=== PATIENT | female | born 1975 | race Caucasian/White ===

== ENCOUNTER 2019-11-15 14:56 | Emergency (ER) | payer OTHER, SELFPAY ==
[2019-11-15 15:06] VITALS: BP 140/81; PULSE 107; RESP 20; TEMP 39; O2SAT 98
--- NOTE | 2019-11-15 15:38 | ED.GENADULT ---
HPI - General Adult General Chief complaint: Upper Respiratory Infection Stated complaint: COUGH/CONGESTION/FEVER Time Seen by Provider: 11/15/19 15:39 Source: patient Mode of arrival: ambulatory Limitations: no limitations History of Present Illness HPI narrative: 44-year-old female patient presents to the psychiatric with complaints of cold symptoms that started yesterday. Patient states she has had headache, nasal congestion, runny nose, cough, sore throat. Denies any nausea, vomiting or diarrhea. Denies any chest pain or shortness of breath. Patient states she has been trying to treat herself with Tylenol, Motrin and NyQuil for her pain. Patient states she was supposed to see her primary doctor at 3:00 today but they called and canceled the appointment because the doctor got sick. 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 Patient denies getting a flu shot this year. Related Data Home Medications Medication Instructions Recorded Confirmed cetirizine [Zyrtec] 10 mg PO DAILY 11/15/19 11/15/19 agxjptehsullv-MX-sxrppmdlpaezu ml PO 11/15/19 [Vicks DayQuil Cold-Flu Relief] Allergies Allergy/AdvReac Type Severity Reaction Status Date / Time aspirin Allergy Unknown Cough Verified 11/15/19 15:15 NSAIDS (Non-Steroidal Allergy Unknown Cough Verified 11/15/19 15:15 Anti-Inflamma Review of Systems Review of Systems: Narrative: CONSTITUTIONAL: Positive fever, chills, body aches and sweats. EYES: Denies visual changes, redness, or discharge. ENT: Positive rhinorrhea, congestion, sore throat, denies otalgia. CARDIOVASCULAR: Denies chest pain, palpitations, or edema. RESPIRATORY: Positive cough denies dyspnea. GASTROINTESTINAL: Denies abdominal pain, nausea, vomiting, or diarrhea. GENITOURINARY: Denies dysuria or hematuria. SKIN: Denies rash or itching. MUSCULOSKELETAL: Denies back pain, joint pain, or myalgia. NEUROLOGIC: Denies headache, numbness, or weakness. PSYCHIATRIC: Denies anxiety or depression. [facility] Family History Family History Father Diabetes mellitus Family history of chronic obstructive pulmonary disease Family history of throat cancer Hypertension Family history of kidney disease Mother Family history of hypercholesterolemia Family history of chronic obstructive pulmonary disease Carcinoma of colon Other Family history of Parkinson's disease Family history of lung cancer Social History Social History Smoking status: Never smoker Alcohol intake: current Comments At the time of my signature I agree with nursing past medical history, surgical, social, and family history. There is no relevant family history pertinent to the presenting complaint. Exam Narrative: Exam Narrative: GENERAL: Well-appearing, well-nourished, and in no acute distress. HEAD: Normocephalic, atraumatic. No tenderness noted to frontal or maxillary sinuses on palpation. EYES: PERRLA and EOMI. ENT: Nares with erythema and edema noted bilaterally, no rhinorrhea or epistaxis. Mucous membranes moist. Bilateral TMs are clear no erythema or foreign bodies in the canal. Posterior pharynx with no erythema, tonsil enlargement, exudates or lesions present. NECK: Supple. No lymphadenopathy CHEST: Clear to auscultation. No respiratory distress. HEART: Regular rate and rhythm. No murmur heard. Normal peripheral pulses. ABDOMEN: Soft, nontender, nondistended, normal active bowel sounds. EXTREMITIES: Normal range of motion. No edema. SKIN: Warm, dry, no rash. NEURO: No focal deficits. Alert and oriented x3. Course Vital Signs Vital signs: Vital Signs Temperature 39.0 C H 11/15/19 15:06 Pulse Rate 107 H 11/15/19 15:06 Respiratory Rate 11/15/19 15:06 Blood Pressure 140/81 11/15/19 15:06 Pulse Oximetry 98 11/15/19 15:06 Temperature 39.0 C H 11/15/19 15:06 Pulse Rate 107 H 11/15/19 15:06 Res
== END 2019-11-15 15:45 | disposition home or self-care (01) ==
PROVIDERS: Emergency Provider Nurse Practitioner Family
DX: J10.1 Influenza due to other identified influenza virus with other respiratory manifestations (principal); I10 Essential (primary) hypertension
CPT/HCPCS: 87804; 99213; G0463

== ENCOUNTER → 2021-01-16 06:54 | Outpatient (CLI) | payer OTHER, SELFPAY ==
[2021-01-17 17:42] LABS: SARS-CoV-2 RNA PCR Negative
== END ==
PROVIDERS: PCP Family Medicine; Visit Provider Nurse Practitioner Family
DX: R68.89 Other general symptoms and signs (principal); Z20.822 Contact with and (suspected) exposure to COVID-19
CPT/HCPCS: C9803; U0003; U0005

== ENCOUNTER → 2021-06-25 16:10 | Outpatient (REF) | payer OTHER, SELFPAY | LOC: ANHLAB 16:10 | PROVIDERS: PCP Nurse Practitioner Family; Visit Provider Nurse Practitioner | DX: L72.11 Pilar cyst (principal) | CPT/HCPCS: 88304 ==

== ENCOUNTER 2023-10-23 10:50 | Emergency (ER) | payer OTHER, SELFPAY ==
[2023-10-23 11:05] VITALS: BP 139/89; PULSE 104; RESP 16; TEMP 37.7; O2SAT 98
--- NOTE | 2023-10-23 11:06 | ED.URI ---
HPI - URI/Sore Throat General Chief Complaint: Upper Respiratory Infection Stated Complaint: SORE THROAT/FEVER/SINUS/CONGESTION/COUGH Time Seen by Provider: 10/23/23 11:06 Source: patient, RN notes reviewed and old records reviewed Mode of arrival: ambulatory Limitations: no limitations History of Present Illness HPI Narrative: 48-year-old female presents to the [facility] with complaints a scratchy sore throat that started on Thursday, 2 days ago. Yesterday started was fevers as high as 102, cough, congestion. Reports headache. Productive cough Related Data Home Medications Medication Instructions Recorded Confirmed peipksgmexkv-Jz-epsf-minerals 1 tablet PO DAILY 02/18/22 10/23/23 cetirizine 10 mg tablet (Zyrtec) 10 mg PO DAILY 10/23/23 10/23/23 pseudoephedrine HCl 120 mg 1 mg PO DAILY 10/23/23 10/23/23 tablet,extended release (Sudafed 12 Hour) Allergies Allergy/AdvReac Type Severity Reaction Status Date / Time aspirin Allergy Unknown Cough Verified 10/23/23 10:57 NSAIDS (Non-Steroidal Allergy Unknown Cough Verified 10/23/23 10:57 Anti-Inflamma lisinopril AdvReac Mild posible Verified 10/23/23 10:57 palpitations Review of Systems Review of Systems: All systems reviewed & are unremarkable except as noted in HPI and below Constitutional: Constitutional: Reports no additional constitutional complaints Eyes: Eyes: Reports no additional eye complaints ENT: Reports as per HPI Cardiovascular: Cardiovascular: Reports no additional cardiovascular complaints, Denies chest pain and Denies dyspnea Respiratory: Respiratory: Reports as per HPI, Reports chest congestion, Reports cough and Denies dyspnea Gastrointestinal: Gastrointestinal: Reports no additional gastrointestinal complaints, Denies abdominal pain, Denies nausea and Denies vomiting Musculoskeletal: Musculoskeletal: Reports no additional musculoskeletal complaints Integumentary/Breasts: Skin/Breast: Reports system reviewed and no additional complaints, except as docu Neurologic: Reports system reviewed and no additional complaints, except as documented Psychiatric: Psychiatric: Reports no additional psychiatric complaints Allergic/Immunologic: Allergic/Immunologic: Reports no additional allergic/immunologic complaints PMFSH Past Medical History Medical History Allergic rhinitis Essential (primary) hypertension Glaucoma Pneumonia Screening mammogram, encounter for Surgical History Surgical History History of appendectomy (08/12/17) History of 02/24/2013 primary c/s--breech 11/10/16 rpt c/s w/tubal ligation History of placement of ear tubes (~1982) History of tonsillectomy (~1979) History of tubal ligation (11/10/16) Family History Family History Father Diabetes mellitus Family history of chronic obstructive pulmonary disease Family history of throat cancer Hypertension Family history of kidney disease Mother Family history of hypercholesterolemia Family history of chronic obstructive pulmonary disease Carcinoma of colon Heart disease Sibling Hypertension brother Diabetes mellitus brother Grandparent Cerebrovascular accident paternal grandmother Other Breast cancer maternal aunt paternal aunt Other Family history of Parkinson's disease Family history of lung cancer Social History Social History Social History: Patient is , she lives in [place] with her and 2 boys. 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 Smoking status: Never smoker Alcohol intake: current Drinks per week: 1 Substance use: never Substance use type: does not use Living arrangements: other Additional living arrangements
== END 2023-10-23 11:20 | disposition home or self-care (01) ==
PROVIDERS: Emergency Provider Nurse Practitioner
DX: U07.1 COVID-19 (principal); I10 Essential (primary) hypertension; H40.9 Unspecified glaucoma
CPT/HCPCS: 87081; 87426; 87804; 87880; 99213; G0463

== ENCOUNTER 2024-01-15 13:08 | Emergency (ER) | payer OTHER, SELFPAY ==
--- NOTE | 2024-01-15 13:17 | ED.GENADULT ---
HPI - General Adult General Chief complaint: Upper Respiratory Infection Stated complaint: Sinus Infection Symptoms Source: patient, RN notes reviewed and old records reviewed Mode of arrival: ambulatory Limitations: no limitations History of Present Illness HPI narrative: 48-year-old female presents to [facility] with complaints of cough, congestion, sore throat, myalgia, headache, fatigue this started Thursday. Patient states he is taking [id number]-fzr-apcjbpp symptoms with no relief. Patient denies chest pain, shortness of breath cough dizziness, weakness. Related Data Home Medications Medication Instructions Recorded Confirmed hjnzesvzlojn-Xe-hqhz-minerals 1 tablet PO DAILY 02/18/22 10/23/23 cetirizine 10 mg tablet (Zyrtec) 10 mg PO DAILY 10/23/23 10/23/23 pseudoephedrine HCl 120 mg 1 mg PO DAILY 10/23/23 10/23/23 tablet,extended release (Sudafed 12 Hour) Allergies Allergy/AdvReac Type Severity Reaction Status Date / Time aspirin Allergy Unknown Cough Verified 10/23/23 10:57 NSAIDS (Non-Steroidal Allergy Unknown Cough Verified 10/23/23 10:57 Anti-Inflamma lisinopril AdvReac Mild posible Verified 10/23/23 10:57 palpitations Review of Systems Constitutional: Constitutional: Reports no additional constitutional complaints, Reports body ache(s), Denies chills, Denies fatigue, Denies fever(s) and Reports headache(s) Eyes: Eyes: Reports no additional eye complaints and Denies blurry vision ENT: Reports system reviewed and no additional complaints, except as documented, Denies vertigo, Denies dizziness, Denies ear discharge, Denies otalgia, Denies facial pain, Reports headache(s), Reports nasal congestion, Reports nasal discharge, Denies sinus pain, Reports sinus pressure and Reports sore throat Cardiovascular: Cardiovascular: Reports no additional cardiovascular complaints, Denies chest pain, Denies chest pain at rest, Denies rapid heart rate and Denies dyspnea Respiratory: Respiratory: Reports no additional respiratory complaints, Denies chest congestion, Reports cough, Denies pain on inspiration, Denies pain with cough and Denies dyspnea Gastrointestinal: Gastrointestinal: Denies abdominal pain, Denies diarrhea, Denies nausea and Denies vomiting Integumentary/Breasts: Skin/Breast: Denies rash Neurologic: Reports system reviewed and no additional complaints, except as documented, Denies vertigo, Denies dizziness and Denies headache(s) Endocrine: Endocrine: Denies fatigue [facility] Past Medical History Medical History Allergic rhinitis Essential (primary) hypertension Glaucoma Pneumonia Screening mammogram, encounter for Surgical History Surgical History History of appendectomy (08/12/17) History of 02/24/2013 primary c/s--breech 11/10/16 rpt c/s w/tubal ligation History of placement of ear tubes (~1982) History of tonsillectomy (~1979) History of tubal ligation (11/10/16) Family History Family History Father Diabetes mellitus Family history of chronic obstructive pulmonary disease Family history of throat cancer Hypertension Family history of kidney disease Mother Family history of hypercholesterolemia Family history of chronic obstructive pulmonary disease Carcinoma of colon Heart disease Sibling Hypertension brother Diabetes mellitus brother Grandparent Cerebrovascular accident paternal grandmother Other Breast cancer maternal aunt paternal aunt Other Family history of Parkinson's disease Family history of lung cancer Social History Social History Social History: Patient is , she lives in [place] with her and 2 boys. 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
[2024-01-15 13:21] VITALS: BP 160/85; PULSE 92; RESP 16; TEMP 36.8; O2SAT 98
== END 2024-01-15 13:43 | disposition home or self-care (01) ==
PROVIDERS: Emergency Provider Registered Nurse
DX: J10.1 Influenza due to other identified influenza virus with other respiratory manifestations (principal); I10 Essential (primary) hypertension; H40.9 Unspecified glaucoma
CPT/HCPCS: 87081; 87804; 87880; 99213; G0463

== ENCOUNTER 2024-01-18 15:32 | Emergency (ER) | payer OTHER, SELFPAY ==
--- NOTE | 2024-01-18 15:39 | ED.URI ---
HPI - URI/Sore Throat General Chief Complaint: Upper Respiratory Infection Stated Complaint: Sinus Infection Symptoms Time Seen by Provider: 01/18/24 15:42 Source: patient, RN notes reviewed and old records reviewed Mode of arrival: ambulatory Limitations: no limitations History of Present Illness HPI Narrative: 48-year-old female [facility] with continued symptoms after testing positive for influenza B on Thursday, 3 days ago. Symptoms started on Thursday 5 days ago. Patient states that she thought she was getting better but still having sinus congestion. Related Data Home Medications Medication Instructions Recorded Confirmed zqnjbjztyppn-Ir-heai-minerals 1 tablet PO DAILY 02/18/22 10/23/23 cetirizine 10 mg tablet (Zyrtec) 10 mg PO DAILY 10/23/23 10/23/23 pseudoephedrine HCl 120 mg 1 mg PO DAILY 10/23/23 10/23/23 tablet,extended release (Sudafed 12 Hour) Allergies Allergy/AdvReac Type Severity Reaction Status Date / Time aspirin Allergy Unknown Cough Verified 01/18/24 15:40 NSAIDS (Non-Steroidal Allergy Unknown Cough Verified 01/18/24 15:40 Anti-Inflamma lisinopril AdvReac Mild posible Verified 01/18/24 15:40 palpitations Review of Systems Review of Systems: All systems reviewed & are unremarkable except as noted in HPI and below Constitutional: Constitutional: Reports no additional constitutional complaints Eyes: Eyes: Reports no additional eye complaints ENT: Reports as per HPI Cardiovascular: Cardiovascular: Reports no additional cardiovascular complaints, Denies chest pain and Denies dyspnea Respiratory: Respiratory: Reports no additional respiratory complaints, Denies chest congestion, Denies cough and Denies dyspnea Gastrointestinal: Gastrointestinal: Reports no additional gastrointestinal complaints, Denies abdominal pain, Denies nausea and Denies vomiting Musculoskeletal: Musculoskeletal: Reports no additional musculoskeletal complaints Integumentary/Breasts: Skin/Breast: Reports system reviewed and no additional complaints, except as docu Neurologic: Reports system reviewed and no additional complaints, except as documented Psychiatric: Psychiatric: Reports no additional psychiatric complaints Allergic/Immunologic: Allergic/Immunologic: Reports no additional allergic/immunologic complaints PMFSH Past Medical History Medical History Allergic rhinitis Essential (primary) hypertension Glaucoma Pneumonia Screening mammogram, encounter for Surgical History Surgical History History of appendectomy (08/12/17) History of 02/24/2013 primary c/s--breech 11/10/16 rpt c/s w/tubal ligation History of placement of ear tubes (~1982) History of tonsillectomy (~1979) History of tubal ligation (11/10/16) Family History Family History Father Diabetes mellitus Family history of chronic obstructive pulmonary disease Family history of throat cancer Hypertension Family history of kidney disease Mother Family history of hypercholesterolemia Family history of chronic obstructive pulmonary disease Carcinoma of colon Heart disease Sibling Hypertension brother Diabetes mellitus brother Grandparent Cerebrovascular accident paternal grandmother Other Breast cancer maternal aunt paternal aunt Other Family history of Parkinson's disease Family history of lung cancer Social History Social History Social History: Patient is , she lives in [place] with her and 2 boys. 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 Smoking status: Never smoker Alcohol intake: current Drinks per week: 1 Substance use: never Substance use type: does not use [facility]
[2024-01-18 15:41] VITALS: BP 154/99; PULSE 92; RESP 20; TEMP 38; O2SAT 100
== END 2024-01-18 16:04 | disposition home or self-care (01) ==
PROVIDERS: Emergency Provider Nurse Practitioner
DX: J32.9 Chronic sinusitis, unspecified (principal); J10.1 Influenza due to other identified influenza virus with other respiratory manifestations; I10 Essential (primary) hypertension; H40.9 Unspecified glaucoma
CPT/HCPCS: 99211; G0463

== ENCOUNTER 2024-03-14 15:32 | Emergency (ER) | payer OTHER, SELFPAY ==
--- NOTE | ~2024-03-14 | XR_ITS ---
EXAM: XR elbow RT min 3V DATE: 03/14/2024 16:12 HISTORY: fell over box onto elbow . COMPARISON: None available. FINDINGS: Normal mineralization. No fracture or dislocation. No lytic or blastic lesion. 6 x 6 cm os seous projection along the medial cortex of the distal humerus. Joint spaces are maintained. Triceps enthesopathy. No erosion or periosteal change. Soft tissues within normal limits. IMPRESSION: No acute osseous finding in the right elbow. Likely osteochondroma projecting off the medial aspect of the distal humerus 6.1 cm above the joint l ine, which could be a source of chronic pain. Correlate for pain/tenderness. Reviewed, dictated and finalized at location K. IMPRESSION: No acute osseous finding in the right elbow. Likely osteochondroma projecting off the medial aspect of the distal humerus 6. 1 cm above the joint line, which could be a source of chronic pain. Correlate f or pain/tenderness.
[2024-03-14 15:42] VITALS: BP 135/85; PULSE 83; RESP 16; TEMP 36.7; O2SAT 99
--- NOTE | 2024-03-14 15:58 | ED.EXTPRO ---
HPI - Extremity Problem General Chief complaint: Extremity Injury, Upper Stated complaint: FALL/R ELBOW INJURY Time Seen by Provider: 03/14/24 15:49 Source: patient and RN notes reviewed Mode of arrival: ambulatory Limitations: no limitations History of Present Illness HPI Narrative: Patient presents today complaining of right elbow pain. Almost a month ago, she fell over a box on her elbow and has been having pain ever since. There it was some numbness and tingling initially, but this has since resolved. She rates her pain at rest 1-2/10, but this increases to 7/10 with movement. She has been applying ice and taking Tylenol with some mild relief. Pain increases with movements such as changing the channel of her car radial or doing large pump motions. Related Data Home Medications Medication Instructions Recorded Confirmed rpuyjyxabreh-Ab-xkoz-minerals 1 tablet PO DAILY 02/18/22 03/14/24 cetirizine 10 mg tablet (Zyrtec) 10 mg PO DAILY 10/23/23 03/14/24 fluticasone furoate 27.5 1 spray intranasal DAILY 03/08/24 03/14/24 mcg/actuation nasal spray,suspension (Flonase Sensimist) Allergies Allergy/AdvReac Type Severity Reaction Status Date / Time aspirin Allergy Unknown Cough Verified 03/14/24 15:45 NSAIDS (Non-Steroidal Allergy Unknown Cough Verified 03/14/24 15:45 Anti-Inflamma lisinopril AdvReac Mild posible Verified 03/14/24 15:45 palpitations Review of Systems Review of Systems: CONSTITUTIONAL: Denies body aches, fever, chills, or sweats. EYES: Denies visual changes, redness, or discharge. ENT: Denies rhinorrhea, congestion, sore throat, or otalgia. CARDIOVASCULAR: Denies chest pain, palpitations, or edema. RESPIRATORY: Denies cough or dyspnea. GASTROINTESTINAL: Denies abdominal pain, nausea, vomiting, or diarrhea. GENITOURINARY: Denies dysuria or hematuria. SKIN: Denies rash, itching, or wounds. MUSCULOSKELETAL: Denies back pain, or myalgia. + right elbow pain NEUROLOGIC: Denies headache, numbness, tingling, or weakness. PSYCH: Denies depression or anxiety. [facility] Past Medical History Medical History Allergic rhinitis Cyst removed from left arm 1995 / cyst removed from scalp 2021 Essential (primary) hypertension Glaucoma Pneumonia Screening mammogram, encounter for Surgical History Surgical History History of appendectomy (08/12/17) History of 02/24/2013 primary c/s--breech 11/10/16 rpt c/s w/tubal ligation History of placement of ear tubes (~1982) History of tonsillectomy (~1979) History of tubal ligation (11/10/16) Family History Family History Father Diabetes mellitus Family history of chronic obstructive pulmonary disease Family history of throat cancer Hypertension Family history of kidney disease Mother Family history of hypercholesterolemia Family history of chronic obstructive pulmonary disease Carcinoma of colon Heart disease Sibling Hypertension brother Diabetes mellitus brother Grandparent Cerebrovascular accident paternal grandmother Other Breast cancer maternal aunt paternal aunt Other Family history of Parkinson's disease Family history of lung cancer Social History Social History Social History: Patient is , she lives in [place] with her and 2 boys. 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 Smoking status: Never smoker Second hand tobacco smoke exposure: No Alcohol intake: current Drinks per week: 1 Substance use: never Substance use type: does not use Do You Feel Safe in your Home?: Yes Lack of Transportation: No Lack of Food: Never True Current Housing: I Have Housing Concerned About
== END 2024-03-14 16:43 | disposition home or self-care (01) ==
PROVIDERS: Emergency Provider Nurse Practitioner
DX: S59.901A Unspecified injury of right elbow, initial encounter (principal); W01.0XXA Fall on same level from slipping, tripping and stumbling without subsequent striking against object, initial encounter; I10 Essential (primary) hypertension; H40.9 Unspecified glaucoma
CPT/HCPCS: 73080; 99213; G0463

== ENCOUNTER 2024-10-03 00:07 | Day surgery (SDC) | payer OTHER, SELFPAY ==
[2024-09-20 08:49] VITALS: BMI 38.0
[2024-10-03 06:51] VITALS: BP 148/94; PULSE 84; RESP 18; TEMP 36.2; O2SAT 95
[2024-10-03] MEDS: LACTATED RINGERS 1,000 ML 150 ML IV CONT (06:59)
--- NOTE | 2024-10-03 07:23 | WPDANESEPPF ---
Anes - Initial Pre Proc Eval Procedure: Operation Date: 10/03/24 08:00 Proposed Procedures p Screening Colonoscopy - Darryl Ramirez DO Date/Time: 10/03/24 07:23 Surgeon: Darryl Ramirez DO Pre Op Diagnosis: Screening for malignant neoplasm of colon Patient Data Age: 49 Gender: F Height: 1.73 m Weight: 117.1 kg Last Vital Signs Temp 36.2 C L 10/03/24 06:51 Pulse 84 10/03/24 06:51 Resp 18 10/03/24 06:51 BP 148/94 H 10/03/24 06:51 Pulse Ox 95 10/03/24 06:51 O2 Del Method Room Air 10/03/24 06:51 Allergies Allergy/AdvReac Type Severity Reaction Status Date / Time aspirin Allergy Unknown Cough Verified 10/03/24 06:47 NSAIDS (Non-Steroidal Allergy Unknown Cough Verified 10/03/24 06:47 Anti-Inflamma lisinopril AdvReac Mild posible Verified 10/03/24 06:47 palpitations Home Medications ?Medication ?Instructions ?Recorded ?Confirmed ?Type dabclhaelybo-Zz-lpbd-minerals 1 tablet PO DAILY 02/18/22 10/03/24 History cetirizine 10 mg tablet (Zyrtec) 10 mg PO DAILY 10/23/23 10/03/24 History fluticasone furoate 27.5 1 spray intranasal DAILY 03/08/24 10/03/24 History mcg/actuation nasal spray,suspension (Flonase Sensimist) Patient hx anesthesia problems: none Family hx anesthesia problems: none Results Review: All pre-operative results and documents have been reviewed as part of the pre-operative evaluation. [facility] Past Medical History Medical History Allergic rhinitis Cyst removed from left arm 1995 / cyst removed from scalp 2021 Essential (primary) hypertension Glaucoma Pneumonia Screening mammogram, encounter for Surgical History Surgical History History of appendectomy (08/12/17) History of 02/24/2013 primary c/s--breech 11/10/16 rpt c/s w/tubal ligation History of placement of ear tubes (~1982) History of tonsillectomy (~1979) History of tubal ligation (11/10/16) Family History Family History Father Diabetes mellitus Family history of chronic obstructive pulmonary disease Family history of throat cancer Hypertension Family history of kidney disease Mother Family history of hypercholesterolemia Family history of chronic obstructive pulmonary disease Carcinoma of colon Heart disease Sibling Hypertension brother Diabetes mellitus brother Grandparent Cerebrovascular accident paternal grandmother Other Breast cancer maternal aunt paternal aunt Other Family history of Parkinson's disease Family history of lung cancer Social History Social History Social History: Patient is , she lives in [place] with her and 2 boys. 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 Smoking status: Never smoker Second hand tobacco smoke exposure: No Alcohol intake: current Drinks per week: 1 Substance use: never Substance use type: does not use Do You Feel Safe in your Home?: Yes Lack of Transportation: No Lack of Food: Never True Current Housing: I Have Housing Concerned About Future Housing: No Difficulty Paying Gas/Electric Bills: No Difficulty Paying for Meds: No Currently Unemployed: No Education: Master's Degree or Higher Difficulty w/ Childcare or Family Care: No Living arrangements: with family Additional living arrangements comments: Occupation/Education: occupation 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 Gender identity (if verbalized by the patient): Female Sexual Orientation (if Verbalized by the Patient): Straight or Heterosexual Spiritual care concerns: No Anes - Eval Final PreProcedure Day of Procedure 10/03/24 07:23 Patient weight: obese Heart: regular rate and rhythm Lungs: clear to auscultation Airway: Mallampati scale class II Neurological: alert and oriented Last oral intake: >/= 8 hours ASA classification: II Emergent: no Anesthetic plan: proceed Anesthesia type and monitoring: general GIVS and standard monitoring Results Review: All pre-operative results and documents have been reviewed as part of the pre-operative evaluation. Informed Consent: The patient's anesthetic plan and its attendant risks and benefits were discussed with the patient/family/POA. Questions were solicited and answers provided to the satisfaction of the patient/family/POA.
--- NOTE | 2024-10-03 07:49 | PM.IMHP ---
H&P: HPI History of Present Illness Date/Time: 10/03/24 07:49 Chief Complaint: Family history of colon cancer Narrative: this is a 49-year-old woman who presents for 1st colonoscopy. She has a family history of colon cancer in her mother. She denies any hematochezia or melena. Review of Systems Review of Systems: All systems reviewed & are unremarkable except as noted in HPI and below Constitutional: Constitutional: Denies chills, Denies fever(s), Denies headache(s) and Denies weight loss Eyes: Eyes: Denies change in vision ENT: Denies dizziness, Denies headache(s), Denies neck mass and Denies throat swelling Cardiovascular: Cardiovascular: Denies chest pain, Denies lightheadedness and Denies dyspnea Respiratory: Respiratory: Denies cough, Denies dyspnea and Denies wheezing Gastrointestinal: Gastrointestinal: Denies abdominal pain, Denies change in bowel habits, Denies nausea and Denies vomiting Genitourinary: Genitourinary: Denies hematuria and Denies dysuria Musculoskeletal: Musculoskeletal: Reports as per HPI Integumentary/Breasts: Skin/Breast: Reports as per HPI Neurologic: Denies dizziness and Denies headache(s) Allergic/Immunologic: Allergic/Immunologic: Denies throat swelling and Denies wheezing PMF Past Medical History Medical History Allergic rhinitis Cyst removed from left arm 1995 / cyst removed from scalp 2021 Essential (primary) hypertension Glaucoma Pneumonia Screening mammogram, encounter for Surgical History Surgical History History of appendectomy (08/12/17) History of 02/24/2013 primary c/s--breech 11/10/16 rpt c/s w/tubal ligation History of placement of ear tubes (~1982) History of tonsillectomy (~1979) History of tubal ligation (11/10/16) Family History Family History Father Diabetes mellitus Family history of chronic obstructive pulmonary disease Family history of throat cancer Hypertension Family history of kidney disease Mother Family history of hypercholesterolemia Family history of chronic obstructive pulmonary disease Carcinoma of colon Heart disease Sibling Hypertension brother Diabetes mellitus brother Grandparent Cerebrovascular accident paternal grandmother Other Breast cancer maternal aunt paternal aunt Other Family history of Parkinson's disease Family history of lung cancer Social History Social History Social History: Patient is , she lives in [place] with her and 2 boys. 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 Smoking status: Never smoker Second hand tobacco smoke exposure: No Alcohol intake: current Drinks per week: 1 Substance use: never Substance use type: does not use Do You Feel Safe in your Home?: Yes Lack of Transportation: No Lack of Food: Never True Current Housing: I Have Housing Concerned About Future Housing: No Difficulty Paying Gas/Electric Bills: No Difficulty Paying for Meds: No Currently Unemployed: No Education: Master's Degree or Higher Difficulty w/ Childcare or Family Care: No Living arrangements: with family Additional living arrangements comments: Occupation/Education: occupation 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 Gender identity (if verbalized by the patient): Female Sexual Orientation (if Verbalized by the Patient): Straight or Heterosexual Spiritual care concerns: No Meds Home Medications and Allergies Home Medications ?Medication ?Instructions ?Recorded ?Confirmed ?Type rduvwvrttnra-Se-kpur-minerals 1 tablet PO DAILY 02/18/22 10/03/24 History cetirizine 10 mg tablet (Zyrtec) 10 mg PO DAILY 10/23/23 10/03/24 History fluticasone furoate 27.5 1 spray intranasal DAILY 03/08/24 10/03/24 History mcg/actuation nasal spray,suspension (Flonase Sensimist) Allergies Allergy/AdvReac Type Severity Reaction Status Date / Time aspirin Allergy Unknown Cough Verified 10/03/24 06:47 NSAIDS (Non-Steroidal Allergy Unknown Cough Verified 10/03/24 06:47 Anti-Inflamma lisinopril AdvReac Mild posible Verified 10/03/24 06:47 palpitations Vital Signs Vital Signs - 24 hr 10/03/24 06:51 Temperature 97.2 F L Pulse Rate 84 Respiratory Rate 18 Blood Pressure 148/94 H Pulse Oximetry 95 Oxygen Delivery Room Air Exam Const: General: no acute distress and alert Orientation/consciousness: patient oriented x3 HENMT: Head: normocephalic and atraumatic Ears: hearing grossly normal bilaterally Face/Nose/Sinus: Normal nares present Mouth: Yes Normal oral and palatal mucosa present Eyes: Periorbital: periorbital findings normal Sclera: sclerae normal EOM: EOMs intact bilaterally Neck: Neck: normal visual inspection, no lymphadenopathy and trachea midline Chest: Chest palpation & inspection: normal inspection of the chest Resp: Effort & Inspection: normal respiratory effort Auscultation: clear to auscultation bilaterally Cardio: Jugular venous distension: no JVD Rate: regular rate Rhythm: regular rhythm Heart sounds: S1 normal heart sound present and S2 normal heart sound present Peripheral pulses: Peripheral pulses 2+ throughout GI: Inspection: normal to inspection GI Palp: Yes Soft to palpation, No Tenderness to palpation present (GI), No Guarding due to palpation present (GI) and No Rebound tenderness present Percussion: Yes normal to percussion Auscultation: normal bowel sounds : General: Yes no CVA tenderness Back/Spine/Pelvis: Back: no CVA tenderness Neuro: General: patient oriented x3, no focal motor deficits and CN's II-XI intact bilaterally Cognition (Neuro): normal cognition Speech: normal speech Motor exam (neuro): 5/5 motor strength present throughout Extrem: General: capillary refill normal and no clubbing, cyanosis or edema Assessment and Plan Assessment and plan (1) Encounter for screening for malignant neoplasm of colon: Code(s): Z12.11 - Encounter for screening for malignant neoplasm of colon Status: Acute Assessment and Plan: I have recommended colonoscopy. I have discussed the procedure, risks, benefits, and alternatives. Questions were answered. Patient is agreeable to proceed. (2) Family hx of colon cancer: Code(s): Z80.0 - Family history of malignant neoplasm of digestive organs Status: Acute
[2024-10-03 08:26] VITALS: BP 135/90; PULSE 83; RESP 18; O2SAT 97
[2024-10-03 08:36] VITALS: BP 115/72; PULSE 79; RESP 16; O2SAT 96
[2024-10-03 08:46] VITALS: BP 127/87; PULSE 72; RESP 14; O2SAT 100
== END 2024-10-03 08:56 | disposition home or self-care (01) ==
PROVIDERS: PCP Nurse Practitioner Family; Visit Provider Surgery
PROC: 0DJD8ZZ Inspection of Lower Intestinal Tract, Via Natural or Artificial Opening Endoscopic (ICD-10-PCS; CPT 45378; principal; 2024-10-03 08:00)
DX: Z12.11 Encounter for screening for malignant neoplasm of colon (principal); D12.0 Benign neoplasm of cecum; I10 Essential (primary) hypertension; E66.9 Obesity, unspecified; Z68.39 Body mass index [BMI] 39.0-39.9, adult; Z98.890 Other specified postprocedural states; Z98.51 Tubal ligation status; Z80.0 Family history of malignant neoplasm of digestive organs; Z80.1 Family history of malignant neoplasm of trachea, bronchus and lung; Z80.3 Family history of malignant neoplasm of breast; Z82.49 Family history of ischemic heart disease and other diseases of the circulatory system
CPT/HCPCS: 45385; 88305; J2003; J2704; J7120

== ENCOUNTER 2025-08-15 00:28 | Day surgery (SDC) | payer OTHER, SELFPAY ==
--- OUTSIDE RECORDS SUMMARY | 2024-11-10 07:29 | XMS_ITS | Continuity of Care Document ---
Author Organization [facility] Address [address] [place] [address] [address] [place] [address] Phone Care Team Providers Care Child Watch Attendant Name Role Phone Lucia Sun OT Unavailable Unavailable Procedures Procedure Date Identified as not an unhealthy alcohol u ser Not identified as unhealthy alcohol via screening OT Re-Evaluation Therapeutic Activities Neuromuscular Re-Ed Therapeutic Exercise Manual Therapy Hot or Cold Pack Therapeutic Activities Neuromuscular Re-Ed Therapeutic Exercise Manual Therapy Hot or Cold Pack Therapeutic Activities Neuromuscular Re-Ed Therapeutic Exercise Manual Therapy Hot or Cold Pack Therapeutic Activities Neuromuscular Re-Ed Therapeutic Exercise Manual Therapy Hot or Cold Pack Identified as not an unhealthy alcohol u ser Not identified as unhealthy alcohol via screening OT Re-Evaluation Therapeutic Activities Neuromuscular Re-Ed Therapeutic Exercise Manual Therapy Hot or Cold Pack Therapeutic Activities Neuromuscular Re-Ed Therapeutic Exercise Manual Therapy Hot or Cold Pack Neuromuscular Re-Ed Therapeutic Activities Therapeutic Exercise Hot or Cold Pack Manual Therapy Therapeutic Activities Neuromuscular Re-Ed Therapeutic Exercise Manual Therapy Hot or Cold Pack Therapeutic Activities Neuromuscular Re-Ed Therapeutic Exercise Manual Therapy Hot or Cold Pack Therapeutic Activities Neuromuscular Re-Ed Therapeutic Exercise Manual Therapy Hot or Cold Pack Therapeutic Activities Neuromuscular Re-Ed Therapeutic Exercise Manual Therapy Hot or Cold Pack Therapeutic Activities Neuromuscular Re-Ed Therapeutic Exercise Manual Therapy Hot or Cold Pack 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 Therapeutic Activities Neuromuscular Re-Ed Therapeutic Exercise Manual Therapy Hot or Cold Pack Therapeutic Activities Neuromuscular Re-Ed Therapeutic Exercise Manual Therapy Hot or Cold Pack Therapeutic Activities Neuromuscular Re-Ed Therapeutic Exercise Jul- Manual Therapy Jul- Hot or Cold Pack Therapeutic Activities Neuromuscular Re-Ed Jul- Therapeutic Exercise Jul- Manual Therapy Jul- Hot or Cold Pack Therapeutic Activities Neuromuscular Re-Ed Jul- Therapeutic Exercise Jul- Manual Therapy Jul- Hot or Cold Pack Therapeutic Activities Neuromuscular Re-Ed Therapeutic Exercise Manual Therapy Hot or Cold Pack Therapeutic Activities Therapeutic Exercise Neuromuscular Re-Ed Manual Therapy Hot or Cold Pack Therapeutic Activities Neuromuscular Re-Ed Therapeutic Exercise Manual Therapy Hot or Cold Pack Therapeutic Activities Neuromuscular Re-Ed Therapeutic Exercise Manual Therapy Hot or Cold Pack Therapeutic Activities Neuromuscular Re-Ed Jun- Therapeutic Exercise Manual Therapy Hot or Cold Pack Identified as not an unhealthy alcohol u ser Not identified as unhealthy alcohol via screening OT Re-Evaluation Jun- Therapeutic Activities Jun- Therapeutic Exercise Jun- Neuromuscular Re-Ed Manual Therapy Hot or Cold Pack Therapeutic Activities Neuromuscular Re-Ed Jun- Therapeutic Exercise Manual Therapy Hot or Cold Pack Therapeutic Activities Neuromuscular Re-Ed Jun- Therapeutic Exercise Jun- Manual Therapy Jun- Hot or Cold Pack Therapeutic Activities Neuromuscular Re-Ed Therapeutic Exercise Jun- Manual Therapy Hot or Cold Pack Therapeutic Activities Neuromuscular Re-Ed Jun- Therapeutic Exercise Jun- Manual Therapy Hot or Cold Pack Therapeutic Activities Neuromuscular Re-Ed Therapeutic Exercise Manual Therapy Hot or Cold Pack Therapeutic Activities Neuromuscular Re-Ed Manual Therapy Therapeutic Exercise Hot or Cold Pack Therapeutic Activities Neuromuscular Re-Ed Therapeutic Exercise Manual Therapy Hot or Cold Pack Identified as not an unhealthy alcohol u ser Not identified as unhealthy alcohol via screening OT Evaluation Low Complexity Therapeutic Activities Neuromuscular Re-Ed Therapeutic Exercise Manual Therapy Hot or Cold Pack Advance Directives Directive Yes / No Effective Date File Name No Information Encounters Encounter Description Practice Location Reason(s) For Visit Diagnoses Date Provider Providers Copied on Encounter [facility], [id number], tel:[phone] [place] No Information 5 Corinne Myers. . [facility] [place] [address], [id number], tel:[phone] [place] No Information 4 Corinne Tatume. . Referring Provider: Martha Gutiérrez [facility] [address] /, [place], [address]. tel:[phone] [place] [address] [address], [id number], tel:[phone] [place] No Information 4 Corinne Myers. . Ref[facility] Provider: [facility] [address], [place], [address]. tel:[phone] [place], [place] [id number] [address], [id number], [place] tel:[phone] [place] No Information Dec-0 4-202 4 Sun Lucia. . Referring Provider: Casper Hameed, [address], [place], [address]. tel:[phone] [place] [address], [address], [place], [place], [id number], [place] tel:[phone] [place] No Information Dec-0 2-202 4 Sun Lucia. . Referring Provider: Casper Hameed, [address], [place], [address]. tel:[phone] [place] [address] [address], [place], [place], [id number], tel:[phone] [place] No Information Nov-2 7- 4 Sun Lucia. . Referring Provider: Casper Hameed, Martha [facility] [address], [place], [address]. tel:[phone] [place] [address], [address], [place], [place], [id number], [place] tel:[phone] [place] No Information Nov-2 5- 4 Sun Lucia. . Referring Provider: Casper Hameed, Martha [facility] [address], [place], [address]. tel:[phone] [place] [address], [address], [place], [place], [id number], [place] tel:[phone] [place] No Information Nov-2 0-202 4 Sun Lucia. . Referring Provider: Martha Gutiérrez [address], [place], [address]. tel:[phone] [place] [address], [address], [place], [place], [id number], [place] tel:[phone] [place] No Information Nov-1 8-202 4 Sun Lucia. . Referring Provider: Casper Hameed, [address], [place], [address]. tel:[phone] [place], [place] [address], [place], [place], [id number], tel:[phone] [place] No Information 4 Sun Lucia. . Referring Provider: Casper Hameed, [address], [place], [address]. tel:[phone] [place] [address] [address], [place], [place], [id number], [place] tel:[phone] [place] No Information 4 Sun Lucia. . Referring Provider: Casper Hameed, [address], [place], [address]. tel:[phone] [place] [address], [address] [place], [place] [address], [place], [place], [id number], [place] tel:[phone] [place] No Information 4 Sun Lucia. . Referring Provider: Casper Hameed, [address], [place], [address]. tel:[phone] [place] [address] [facility] [address], [place], [place], [id number], [place] tel:[phone] [place] No Information 4 Sun Lucia. . Referring Provider: Martha Gutiérrez [address], [place], [address]. tel:[phone] [place] [address], [address], [place], [place], [id number], tel:[phone] [place] No Information 4 Sun Lucia. . Referring Provider: Martha Gutiérrez [address], [place], [address]. tel:[phone] [place] [address] [address], [place], [place], [id number], [place] tel:[phone] [place] No Information Oct-2 1-202 4 Sun Lucia. . Referring Provider: Casper Hameed, Martha [facility] [address], [place], [address]. tel:[phone] [place] [address] [address], [place], [place], [id number], [place] tel:[phone] [place] No Information Oct-1 6-202 4 Sun Lucia. . Referring Provider: Casper Hameed, Martha [facility] [address], [place], [address]. tel:[phone] [place] [address] [address], [place], [place], [id number], [place] tel:[phone] [place] No Information Oct-1 4-202 4 Sun Lucia. . Referring Provider: Martha Gutiérrez [facility] [address], [place], [address]. tel:[phone] [place] [address] [address], [place], [place], [id number], tel:[phone] [place] No Information Oct-1 0-202 4 Sun Lucia. . Referring Provider: Martha Gutiérrez [facility] [address], [place], [address]. tel:[phone] [place] [address] [address], [place], [place], [id number], [place] tel:[phone] [place] No Information Oct-0 7-202 4 Sun Lucia. . Referring Provider: Martha Gutiérrez [facility] [address], [place], [address]. tel:[phone] [place], [place] [address] [address], [place], [place], [id number], [place] tel:[phone] [place] No Information Oct-0 2-202 4 Sun Lucia. . Referring Provider: Casper Hameed, [address], [place], [address]. tel:[phone] [place] [address], [address], [place], [place], [id number], [place] tel:[phone] [place] No Information Sep-3 0-202 4 Sun Lucia. . Referring Provider: Martha Gutiérrez [address], [place], [address]. tel:[phone] [place] [address], [address], [place], [place], [id number], [place] tel:[phone] [place] No Information Sep-2 6-202 4 Sun Lucia. . Referring Provider: Casper Hameed, [address], [place], [address]. tel:[phone] [place] [address], [address], [place], [place], [id number], [place] tel:[phone] [place] No Information Sep-2 5-202 4 Sun Lucia. . Referring Provider: Martha Gutiérrez [address], [place], [address]. tel:[phone] [place] [address], [address], [place], [place], [id number], [place] tel:[phone] [place] No Information Sep-1 8- 4 Sun Lucia. . Referring Provider: Martha Gutiérrez [address], [place], [address]. tel:[phone] [place] [address], [address], [place], [place], [id number], [place] tel:[phone] [place] No Information Sep-1 6- 4 Sun Lucia. . Referring Provider: Casper Hameed, [address], [place], [address]. tel:[phone] [place] [address], [facility] [address], [place], [place], [id number], [place] tel:[phone] [place] No Information Sep-1 - 4 Sun Lucia. . Referring Provider: Casper Hameed, [address], [place], [address]. tel:[phone] [place] [address] [address], [place], [place], [address], tel:[phone] [place] No Information Sep-0 - 4 Sun Lucia. . Referring Provider: Casper Hameed, [address], [place], [address]. tel:[phone] [place] [address], [facility] [address], [place], [place], [id number], [place] tel:[phone] [place] No Information Sep-0 4 Sun Lucia. . Referring Provider: Casper Hameed, Martha [facility] [address], [place], [address]. tel:[phone] [place] [address] [address], [place], [place], [id number], [place] tel:[phone] [place] No Information Sep-0 -202 4 Sun Lucia. . Referring Provider: Martha Gutiérrez [address], [place], [address]. tel:[phone] [place] [address], [address], [place], [place], [address], [place] tel:[phone] [place] No Information May-2 4 Sun Lucia. . Referring Provider: Casper Hameed, [address] [facility] [address], [place], [address]. tel:[phone] [facility] [address] [address], [place], [place], [id number], tel:[phone] [place] No Information 4 Corinne Myers. . Referring Provider: Casper Hameed, [address] [facility] [address], [place], [address]. tel:[phone] [facility] [address] [facility] [address], [place], [place], [id number], tel:[phone] [place] No Information 4 Corinne Myers. . Referring Provider: Casper Hameed, [address] [facility] [address], [place], [address]. tel:[phone] Family History Family Member Type Diagnosis Age At Onset No Information Payers Payer name Insurance type Covered alliance party ID Authoriza tion(s) [employer] [facility] [id number] [facility] Services Admin [facility] 00 Social History Type Description Quantity Date Captured Comments Sex Female Smoking Status No Information Chief Complaint And Reason For Visit No Information Reason For Referral Reason For Referral No Information Plan Of Treatment Date Type Action Status Referral Ordered: Referrals: Specialist. Evaluate and Treat (related to Adjustment disorder with depressed mood) ordered Referral Ordered: Depression: Depression management program timeframe: 1 Day. (related to Depression) ordered Referral Ordered: Clinical Psychology (related to Depression) ordered History Of Present Illness Encounter Date Complaint History Of Prese nt Illness No Information Functional Status Date Functional Assessmen t No Information Instructions Date Instruction Additional Infor mation No Information Assessments Type Assessment Date No Information Patient Care Teams Name Effective Dates (start - stop) Status Members No Information
[2025-08-02 08:47] VITALS: BMI 39.5
--- OUTSIDE RECORDS SUMMARY | 2025-08-15 00:31 | XMS_ITS | Clinical Summary ---
Author Organization [facility] mGenerator Address [address] [place] [address] Care Team Providers Care Jazz Musician Name Role Phone Rhianna Barrera MD Primary Care Provider Source Comments [facility],non-owned Affiliates and Associated Physician Practices is amultiple site organization consisting of ambulatory clinics and hospital sitesin [place], [place], [place] and [place]. This disclosure is being madepursuant to the Care Everywhere program and may not contain all information available regarding this patient. Last updated 18.[facility] Allergies Active Allergy Reactions Criticality Noted Date Comments Nsaids 06/11/2016 Medications * Be aware that medications may not be up to date on this document. Alwaysverify current medications with the patient. cetirizine (ZYRTEC) 10 MG tablet Take 10 mg by mouth once daily Active hydroCHLOROth iazide (MICROZIDE) 12.5 MG capsule hydrochlorothiazide 12.5 mg capsule TAKE 1 CAPSULE BY MOUTH EVERY DAY Active methocarbamol (ROBAXIN) 750 MG tablet methocarbamol 750 mg tablet Active predniSONE (DELTASONE) 20 MG tablet 60 mg (3 tablets) days 1-5 days, 40 mg (2 tablets) days 6-10, 20 mg (1 tablet) days 11-15 30 tablet 04/11/20 21 Active Active Problems Problem Noted Date Diagnosed Date Obesity 06/11/2016 Previous delivery, antepartum condition or complication 06/11/2016 AMA (advanced maternal age) multigravida 35+ Supervision of high risk in [facility] 04/21/2016 Family History Medical History Relation Name Comments Diabetes Brother Hypertension Brother Cancer Father Diabetes Father Heart Disease Father Hypertension Father Cancer Maternal Grandfather Cancer Maternal Grandmother Cancer Mother Heart Disease Mother Diabetes Paternal Grandfather Hypertension Paternal Grandfather Stroke Paternal Grandmother Relation Name Status Comments Brother Father Maternal Grandfather Maternal Grandmother Mother Alive Paternal Grandfather Paternal Grandmother Social History Tobacco Use Types Packs/Day Years Used Date Smoking Tobacco: Never Alcohol Use Standard Drinks/Week Comments No 0 (1 standard drink = 0.6 oz pur e alcohol) prior to Comments No Sex and Gender Information Value Date Recorded Sex Assigned at Not on file Legal Sex Female 7:49 AM [employer]BI[employer] Gender Identity Not on file Sexual Orientation Not on file Last Filed Vital Signs Vital Sign Reading Time Taken Comments Blood Pressure 124/70 04/11/2021 6:41 PM CDT Pulse 84 04/11/2021 6:41 PM CDT Temperature 37 C (98.6 F) 04/11/2021 6:41 PM CDT Respiratory Rate 16 04/11/2021 6:41 PM CDT Oxygen Saturation 97% 04/11/2021 6:41 PM CDT Inhaled Oxygen Concentration - - Weight 117.9 kg (260 lb) 04/11/2021 6:41 PM CDT Height 172.7 cm (5' 8) 04/11/2021 6:41 PM CDT Body Mass Index 39.53 04/11/2021 6:41 PM CDT Plan of Treatment Health Maintenance Due Date Last Done Comments COLOGUARD (AGES 45-75) - COLON CA SCREENING 1977 COLON MONITORING 1977 COLONOSCOPY - COLON CA SCREENING 1977 CT COLONOGRAPHY - COLON CA SCREENING 1977 Colorectal Cancer Screening 1977 FIT - COLON CA SCREENING 1977 FLEX SIG - COLON CA SCREENING 1977 LIPID TESTING 1977 MAMMOGRAM 1977 HIV SCREENING 1992 HEPATITIS C SCREENING 07/15/1995 DTAP/TDAP/TD VACCINES (1 - Tdap) 1996 HEPATITIS B VACCINE (1 of 3 - 19+ 3-dose series) 1996 PAP SMEAR 1998 SCREENING FOR DIABETES 04/11/2021 DEPRESSION SCREENING 10/05/2024 COVID-19 VACCINE (2024- season) 2025 12/03/2020, 11/11/2020 INFLUENZA VACCINE (#1) 2025 , 07/29/2018, 08/13/2017, Additional history exists ZOSTER VACCINE (1 of 2) 2027 HIB VACCINE Aged Out No longer eligi ble based on patient's age to complete this topic HPV VACCINE Aged Out No longer eligi ble based on patient's age to complete this topic MENINGOCOCCAL (Group B) VACCINE SHARED DECISION-MAKING Aged Out No longer eligible based on patient's age to complete this topic MENINGOCOCCAL GROUPS A/C/Y/W VACCINE Aged Out No longer eligible based on patient's age to complete this topic PNEUMOCOCCAL VACCINE Aged Out No long er eligible based on patient's age to complete this topic Insurance [facility] SELF PAY NO INSURANCE Member Subscriber Plan / Payer (Ef fective for All Dates) Name:Marilynn Mary Member ID:Not on file Relation to Subscriber:Not on file Name:MARILYNN MARY Subscriber ID:Not on file (Home) Address: [address] [place] [address] Payer ID:Not on file Group ID:Not on file Type:Self Pay Address: [facility] Care Teams Jazz Musician Relationship Specialty Start Date End Date Rhianna Barrera MD [address] [place] [address] [place]NEJO [id number] PCP - General Family Medicine 10/12/12
[2025-08-15 10:39] VITALS: BP 138/94; PULSE 91; RESP 18; TEMP 36.9; O2SAT 98
[2025-08-15 10:45] LABS: BEDSIDEPREGUCG Negative (Negative)
[2025-08-15] MEDS: LACTATED RINGERS 1,000 ML 150 ML IV CONT (10:52)
--- NOTE | 2025-08-15 11:13 | P.PNAN_ITS ---
Anes - Initial Pre Proc Eval Procedure: Operation Date: 08/15/25 11:30 Proposed Procedures p Diagnostic Colonoscopy - Darryl Ramirez DO Date/Time: 08/15/25 11:13 Surgeon: Darryl Ramirez DO Pre Op Diagnosis: Prior history of colon polyps Patient Data Age: 50 Gender: F Height: 1.73 m Weight: 117.3 kg Last Vital Signs Temp 98.5 F 08/15/25 10:39 Pulse 91 08/15/25 10:39 Resp 18 08/15/25 10:39 BP 138/94 H 08/15/25 10:39 Pulse Ox 98 08/15/25 10:39 O2 Del Method Room Air 08/15/25 10:39 Allergies Allergy/AdvReac Type Severity Reaction Status Date / Time aspirin Allergy Unknown Cough Verified 08/15/25 10:35 ibuprofen AdvReac Intermediate Wheezing Verified 08/15/25 10:35 lisinopril AdvReac Mild posible Verified 08/15/25 10:35 palpitations Home Medications ?Medication ?Instructions ?Recorded ?Confirmed ?Type ipuyhtipefaf-Zx-jnvf-minerals 1 tablet PO DAILY 08/15/25 History cetirizine 10 mg tablet (Zyrtec) 10 mg PO DAILY 08/15/25 History fluticasone furoate 27.5 1 spray intranasal DAILY 01/2608/15/25 History mcg/actuation nasal spray,suspension (Flonase Sensimist) albuterol sulfate 90 mcg/actuation 2 puff inhalation Q 4-6H PRN 11/06/24 08/15/25 Rx aerosol inhaler shortness of breath or wheez ing 30 days #8.5 grams methocarbamol 750 mg tablet 750 mg PO DAILY PRN migrai ne 07/18/25 08/02/25 Rx headache #30 tabs glucosamine-chondroitin 250 mg-200 2 tablet PO DAILY 1 08/15/25 History mg tablet magnesium citrate 125 mg capsule 125 mg PO DAILY 08/0208/15/25 History magnesium glycinate 120 mg (as 120 mg PO DAILY 5 08/15/25 History glycinate) capsule Laboratory Tests 08/15/25 10:39 POC Urine HCG, Qual Negative (Negative) Patient hx anesthesia problems: none Family hx anesthesia problems: none Results Review: All pre-operative results and documents have been reviewed as part of the pre- operative evaluation. COUNTS INCLUDE 234 BEDS AT [facility] Past Medical History Medical History (Updated 08/15/25 @ 11:15 by Atul Torres Jr., CRNA) Tension headache Prediabetes (~07/2024) Morbid obesity GERD (gastroesophageal reflux disease) Irregular bleeding Cyst removed from left arm 1995 / cyst removed from scalp 2021 Glaucoma Pneumonia Allergic rhinitis Essential (primary) hypertension Surgical History Surgical History History of appendectomy (08/12/17) History of 02/24/2013 primary c/s--breech 11/10/16 rpt c/s w/tubal ligation History of tubal ligation (11/10/16) History of placement of ear tubes (~1982) History of tonsillectomy (~1979) Family History Family History Father Diabetes mellitus Family history of chronic obstructive pulmonary disease Family history of throat cancer Hypertension Family history of kidney disease Mother Family history of hypercholesterolemia Family history of chronic obstructive pulmonary disease Carcinoma of colon Heart disease Sibling Hypertension brother Diabetes mellitus brother Grandparent Cerebrovascular accident paternal grandmother Other Breast cancer maternal aunt paternal aunt Other Family history of Parkinson's disease Family history of lung cancer Social History Social History Social History: Patient is , she lives in [place] with her and 2 boys. 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. Smoking status: Never smoker Second hand tobacco smoke exposure: No Alcohol intake: current Drinks per week: 1 Substance use: never Substance use type: does not use Do You Feel Safe in your Home?: Yes Lack of Transportation: No Lack of Food: Never True Current Housing: I Have Housing Concerned About Future Housing: No Difficulty Paying Gas/Electric Bills: No Difficulty Paying for Meds: No Currently Unemployed: No Education: Master's Degree or Higher Difficulty w/ Childcare or Family Care: No Living arrangements: with family Additional living arrangements comments: Occupation/Education: occupation 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 Gender identity (if verbalized by the patient): Female Sexual Orientation (if Verbalized by the Patient): Straight or Heterosexual Spiritual care concerns: No Anes - Eval Final PreProcedure Day of Procedure 08/15/25 11:13 Patient weight: morbidly obese Heart: regular rate and rhythm Lungs: clear to auscultation Airway: Mallampati scale class II Neurological: alert and oriented Last oral intake: >/= 8 hours ASA classification: III Emergent: no Anesthetic plan: proceed Anesthesia type and monitoring: general GIVS and standard monitoring Results Review: All pre-operative results and documents have been reviewed as part of the pre- operative evaluation. Informed Consent: The patient's anesthetic plan and its attendant risks and benefits were discussed with the patient/family/POA. Questions were solicited and answers provided to the satisfaction of the patient/family/POA.
--- NOTE | 2025-08-15 11:55 | PM.IMHP ---
H&P: HPI History of Present Illness Date/Time: 08/15/25 11:55 Chief Complaint: History of colon polyps Narrative: This is a 50-year-old woman who presents for colonoscopy. Her last colonoscopy was 1 year ago and a 2 cm polyp was removed at that time. She denies any hematochezia or melena. She does have family history of colon cancer in her mother. Review of Systems Review of Systems: All systems reviewed & are unremarkable except as noted in HPI and below Constitutional: Constitutional: Denies chills, Denies fever(s), Denies headache(s) and Denies weight loss Eyes: Eyes: Denies change in vision ENT: Denies dizziness, Denies headache(s), Denies neck mass and Denies throat swelling Cardiovascular: Cardiovascular: Denies chest pain, Denies lightheadedness and Denies dyspnea Respiratory: Respiratory: Denies cough, Denies dyspnea and Denies wheezing Gastrointestinal: Gastrointestinal: Denies abdominal pain, Denies change in bowel habits, Denies nausea and Denies vomiting Genitourinary: Genitourinary: Denies hematuria and Denies dysuria Musculoskeletal: Musculoskeletal: Reports as per HPI Integumentary/Breasts: Skin/Breast: Reports as per HPI Neurologic: Denies dizziness and Denies headache(s) Allergic/Immunologic: Allergic/Immunologic: Denies throat swelling and Denies wheezing [facility] Past Medical History Medical History (Updated 08/15/25 @ 11:56 by Darryl Ramirez DO) Tension headache Prediabetes (~07/2024) Morbid obesity GERD (gastroesophageal reflux disease) Irregular bleeding Cyst removed from left arm 1995 / cyst removed from scalp 2021 Glaucoma Pneumonia Allergic rhinitis Essential (primary) hypertension Surgical History Surgical History History of appendectomy (08/12/17) History of 02/24/2013 primary c/s--breech 11/10/16 rpt c/s w/tubal ligation History of tubal ligation (11/10/16) History of placement of ear tubes (~1982) History of tonsillectomy (~1979) Family History Family History Father Diabetes mellitus Family history of chronic obstructive pulmonary disease Family history of throat cancer Hypertension Family history of kidney disease Mother Family history of hypercholesterolemia Family history of chronic obstructive pulmonary disease Carcinoma of colon Heart disease Sibling Hypertension brother Diabetes mellitus brother Grandparent Cerebrovascular accident paternal grandmother Other Breast cancer maternal aunt paternal aunt Other Family history of Parkinson's disease Family history of lung cancer Social History Social History Social History: Patient is , she lives in [place] with her and 2 boys. 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 Smoking status: Never smoker Second hand tobacco smoke exposure: No Alcohol intake: current Drinks per week: 1 Substance use: never Substance use type: does not use Do You Feel Safe in your Home?: Yes Lack of Transportation: No Lack of Food: Never True Current Housing: I Have Housing Concerned About Future Housing: No Difficulty Paying Gas/Electric Bills: No Difficulty Paying for Meds: No Currently Unemployed: No Education: Master's Degree or Higher Difficulty w/ Childcare or Family Care: No Living arrangements: with family Additional living arrangements comments: Occupation/Education: occupation 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 Gender identity (if verbalized by the patient): Female Sexual Orientation (if Verbalized by the Patient): Straight or Heterosexual Spiritual care concerns: No Meds Home Medications and Allergies Home Medications ?Medication ?Instructions ?Recorded ?Confirmed ?Type sznlofaosexz-Yo-xvrx-minerals 1 tablet PO DAILY 02/18/22 08/15/25 History cetirizine 10 mg tablet (Zyrtec) 10 mg PO DAILY 10/23/23 08/15/25 History fluticasone furoate 27.5 1 spray intranasal DAILY 03/08/24 08/15/25 History mcg/actuation nasal spray,suspension (Flonase Sensimist) albuterol sulfate 90 mcg/actuation 2 puff inhalation Q4-6H PRN 11/06/24 08/15/25 Rx aerosol inhaler shortness of breath or wheezing 30 days #8.5 grams methocarbamol 750 mg tablet 750 mg PO DAILY PRN migraine 07/18/25 08/02/25 Rx headache #30 tabs glucosamine-chondroitin 250 mg-200 2 tablet PO DAILY 08/02/25 08/15/25 History mg tablet magnesium citrate 125 mg capsule 125 mg PO DAILY 08/02/25 08/15/25 History magnesium glycinate 120 mg (as 120 mg PO DAILY 08/02/25 08/15/25 History glycinate) capsule Allergies Allergy/AdvReac Type Severity Reaction Status Date / Time aspirin Allergy Unknown Cough Verified 08/15/25 10:35 ibuprofen AdvReac Intermediate Wheezing Verified 08/15/25 10:35 lisinopril AdvReac Mild posible Verified 08/15/25 10:35 palpitations Vital Signs Vital Signs - 24 hr 08/15/25 10:39 Temperature 98.5 F Pulse Rate 91 Respiratory Rate 18 Blood Pressure 138/94 H Pulse Oximetry 98 Oxygen Delivery Room Air Exam Const: General: no acute distress and alert Orientation/consciousness: patient oriented x3 HENMT: Head: normocephalic and atraumatic Ears: hearing grossly normal bilaterally Face/Nose/Sinus: Normal nares present Mouth: Yes Normal oral and palatal mucosa present Eyes: Periorbital: periorbital findings normal Sclera: sclerae normal EOM: EOMs intact bilaterally Neck: Neck: normal visual inspection, no lymphadenopathy and trachea midline Chest: Chest palpation & inspection: normal inspection of the chest Resp: Effort & Inspection: normal respiratory effort Auscultation: clear to auscultation bilaterally Cardio: Jugular venous distension: no JVD Rate: regular rate Rhythm: regular rhythm Heart sounds: S1 normal heart sound present and S2 normal heart sound present Peripheral pulses: Peripheral pulses 2+ throughout GI: Inspection: normal to inspection GI Palp: Yes Soft to palpation, No Tenderness to palpation present (GI), No Guarding due to palpation present (GI) and No Rebound tenderness present Percussion: Yes normal to percussion Auscultation: normal bowel sounds : General: Yes no CVA tenderness Back/Spine/Pelvis: Back: no CVA tenderness Neuro: General: patient oriented x3, no focal motor deficits and CN's II-XI intact bilaterally Cognition (Neuro): normal cognition Speech: normal speech Motor exam (neuro): 5/5 motor strength present throughout Extrem: General: capillary refill normal and no clubbing, cyanosis or edema Assessment and Plan Assessment and plan (1) Hx of colonic polyp: Code(s): Z86.0100 - Personal history of colon polyps, unspecified Status: Acute Assessment and Plan: I have recommended colonoscopy. I have discussed the procedure, risks, benefits, and alternatives. Questions were answered. Patient is agreeable to proceed.
--- NOTE | 2025-08-15 12:19 | S_PTH ---
PATIENT: Marilynn Leone LOC: [facility]IS #:[id number] AGE/SX: 50/F ROOM: RE08/15/[address]: Darryl Ramirez DO : 1975 BED: DIS: 08/15/2025 SPEC #: [id number] RECD: 08/15/25 12:24 STATUS: KEA REQ #: [id number] MAXIMO: 08/15/25 12:[address]: Darryl Ramirez DEPT: [facility] Surgical RECD BY: Kevin Valencia ENTERED: 08/15/25 12:25 SP TYPE: Surgical OTHR DR: Christie Trejo, BHAVIN Tissues: A - Colon Polypectomy Procedures: Hematoxylin and Eosin Stain Gross and Microscopic Level 4
[2025-08-15 12:24] VITALS: BP 89/41; PULSE 80; RESP 15; O2SAT 97
[2025-08-15 12:34] VITALS: BP 127/73; PULSE 78; RESP 14; O2SAT 99
== END 2025-08-15 12:56 | disposition home or self-care (01) ==
PROVIDERS: Anesthesiology; PCP Nurse Practitioner Family; Visit Provider Surgery
PROC: 0DJD8ZZ Inspection of Lower Intestinal Tract, Via Natural or Artificial Opening Endoscopic (ICD-10-PCS; CPT 45378; principal; 2025-08-15 11:30)
DX: Z12.11 Encounter for screening for malignant neoplasm of colon (principal); D12.5 Benign neoplasm of sigmoid colon; Z80.0 Family history of malignant neoplasm of digestive organs; E66.01 Morbid (severe) obesity due to excess calories; Z68.39 Body mass index [BMI] 39.0-39.9, adult
CPT/HCPCS: 45380; 88305; J2003; J2704; J7120